=== PATIENT | male | born 1970 | race Caucasian/White ===

== ENCOUNTER 2022-02-01 10:38 | Emergency (ER) | payer BC, SELFPAY ==
[2022-02-01 10:47] VITALS: BP 167/93; RESP 22; TEMP 36.7; O2SAT 97; BMI 44.0
--- NOTE | 2022-02-01 12:42 | ED.BACK ---
HPI - Back Pain/Injury General Time Seen by Provider: 12:42 <Lilliam Etienne MD - Last Filed: 03/18/22 13:20> Date Seen: 02/01/22 <Lilliam Etienne MD - Last Filed: 03/18/22 13:20> Chief Complaint: Back Injury/Pain <Lilliam Etienne MD - Last Filed: 03/18/22 13:20> Stated Complaint: Low back pain <Lilliam Etienne MD - Last Filed: 03/18/22 13:20> Time Seen by Provider: 02/01/22 12:42 <Lilliam Etienne MD - Last Filed: 03/18/22 13:20> Source: patient and RN notes reviewed <Lanny Price MD - Last Filed: 02/01/22 13:29> Mode of arrival: ambulatory <Lanny Price MD - Last Filed: 02/01/22 13:29> Limitations: no limitations <Lanny Price MD - Last Filed: 02/01/22 13:29> History of Present Illness HPI Narrative: Patient is a 51-year-old male coming in with low back pain that radiates through his buttock into the leg. This just started insidiously over the last couple days. Yesterday he tried getting and warm tub, describes it as he fought his way into the tub. He has been trying heating pad. He has been trying laying on the floor with his legs elevated. He has done Tylenol, ibuprofen, aspirin type back medication as well as Aleve. Yesterday the front of his right thigh felt numb but that is no longer there. The pain radiates down to the leg, down past the knee at times. He notes if he tries to turn at the torso, he gets a sharp shooting pain. He states when he goes to turn he has to move with his feet instead of leading with his torso as you normally would reflexively do. He has had no fevers or chills, is a nonsmoker, there is no trauma. He historically has gotten some back spasms in his back in the past but would just lay on the floor with his legs elevated and that would resolve it. He has never had to have any imaging of his back in the past due to any pain. Sleeping was difficult, had difficulty getting into bed. He states he finally got into bed and just tried some meditation, self relaxation and was able to fall asleep. Denies any bowel or bladder issues, no motor issues. <Lanny Price MD - Last Filed: 02/01/22 13:29> MD elicited complaint: back pain <Lanny Price MD - Last Filed: 02/01/22 13:29> Related Data Home Medications: Home Medications Medication Instructions Recorded Confirmed losartan 100 1 tab PO DAILY 02/01/22 02/01/22 mg-hydrochlorothiazide 25 mg tablet <Lilliam Etienne MD - Last Filed: 03/18/22 13:20> Allergies/Adverse Reactions: Allergies Allergy/AdvReac Type Severity Reaction Status Date / Time No Known Drug Allergies Allergy Verified 02/01/22 10:50 <Lilliam Etienne MD - Last Filed: 03/18/22 13:20> Review of Systems Status of ROS: Reports: 6 or more systems reviewed and unremarkable except as noted in History and below <Lanny Price MD - Last Filed: 02/01/22 13:29> Exam Const: Vital Signs, click to edit/add: Vital Signs - 24 hr 02/01/22 10:47 Temperature 98.1 F Respiratory Rate 22 Blood Pressure [Ri ght Upper Arm] 167/93 H Pulse Oximetry 97 Oxygen Delivery Me thod Room Air <Lilliam Etienne MD - Last Filed: 03/18/22 13:20> Vital Signs, click to edit/add: Vital Signs - 24 hr 02/01/22 10:47 Temperature 98.1 F Respiratory Rate 22 Blood Pressure [Ri ght Upper Arm] 167/93 H Pulse Oximetry 97 Oxygen Delivery Me thod Room Air <Lanny Price MD - Last Filed: 02/01/22 13:29> Documenting provider has reviewed patient's vital signs: yes <Lanny Price MD - Last Filed: 02/01/22 13:29> Common normals: no apparent distress, oriented x3, no limitations, healthy appearing and alert <Lanny Price MD - Last Filed: 02/01/22 13:29> General appearance: cooperative, comfortable (Sitting in the chair in exam room 4), well kempt and well developed <Lanny Price MD - Last Filed: 02/01/22 13:29> Nutritional appearance: obese <Lanny Price MD - Last Filed: 02/01/22 13:29> HENMT: Common normals: normocephalic and head/scalp atraumatic <Lanny Price MD - Last Filed: 02/01/22 13:29> Head and scalp: normocephalic and atraumatic <Lanny Price MD - Last Filed: 02/01/22 13:29> Back & Pelvis: Common normals: thoracic and lumbar spine normal to inspection and no thoracic nor lumbar tenderness <MD Cande Verdugo Last Filed: 02/01/22 13:29> Other: Complains of pain in the right buttock muscle, no visible skin changes. Has a definite straight leg raise on the right, some contralateral on the left but less so than the right. <Lanny Price MD - Last Filed: 02/01/22 13:29> Neuro: Common normals: oriented x3 <Lanny Price MD - Last Filed: 02/01/22 13:29> Sensorium/orientation: alert <Lanny Price MD - Last Filed: 02/01/22 13:29> Other: No DTRs on either side could be elicited. Strength is 5/5 and symmetric in both sides. Normal light touch sensation throughout. No lower extremity edema noted on either side. Has definite straight leg raising. Did ambulate into the ED without difficulty. <Lanny Price MD - Last Filed: 02/01/22 13:29> Psych: Appearance: well kempt <MD Cande Verdugo Last Filed: 02/01/22 13:29> Skin: Common normals: no rashes or lesions noted (On visualized skin) <Lanny Price MD - Last Filed: 02/01/22 13:29> General skin exam: no rashes or lesions noted (On visualized skin) <Lanny Price MD - Last Filed: 02/01/22 13:29> Course Course Hospital Course: Reviewed with patient the warning signs for back issues, he is not exhibiting any. Discussed when consideration for neuro imaging would be necessary. At this time I believe he can proceed with conservative management and outpatient follow-up. If the treatment we are all lining with medication is not working, can follow up with his primary care provider and consider physical therapy and or MRI if his back has ongoing symptoms. Did review that clinically I would suspect he has radiculopathy of a left nerve root. Scripts her medicines provided from [facility]. Smallest dose available of the oxycodone was 10 tablets of the 5 mg pack. Prednisone 20 b.i.d. x5 days provided. Flexeril 10 mg t.i.d. p.r.n., 15 provided. <Lilliam Etienne MD - Last Filed: 03/18/22 13:20> Vital Signs Vital signs: Initial Vital Signs Temperature 98.1 F 02/01/22 10:47 Temperature Source Temporal Artery Scan 02/01/22 10:47 Respiratory Rate 22 02/01/22 10:47 Blood Pressure 167/93 H 02/01/22 10:47 Blood Pressure Mean 117 02/01/22 10:47 Blood Pressure Position Sitting 02/01/22 10:47 Pulse Oximetry 97 02/01/22 10:47 Oxygen Delivery Method 02/01/22 10:47 Vital Signs Temperature 98.1 F 02/01/22 10:47 Respiratory Rate 22 02/01/22 10:47 Blood Pressure 167/93 H 02/01/22 10:47 Pulse Oximetry 97 02/01/22 10:47 Oxygen Delivery Method 02/01/22 10:47 Temperature 98.1 F 02/01/22 10:47 Respiratory Rate 22 02/01/22 10:47 Blood Pressure 167/93 H 02/01/22 10:47 Pulse Oximetry 97 02/01/22 10:47 Oxygen Delivery Method 02/01/22 10:47 <Lilliam Etienne MD - Last Filed: 03/18/22 13:20> Initial Vital Signs Temperature 98.1 F 02/01/22 10:47 Temperature Source Temporal Artery Scan 02/01/22 10:47 Respiratory Rate 22 02/01/22 10:47 Blood Pressure 167/93 H 02/01/22 10:47 Blood Pressure Mean 117 02/01/22 10:47 Blood Pressure Position Sitting 02/01/22 10:47 Pulse Oximetry 97 02/01/22 10:47 Oxygen Delivery Method 02/01/22 10:47 Vital Signs Temperature 98.1 F 02/01/22 10:47 Respiratory Rate 22 02/01/22 10:47 Blood Pressure 167/93 H 02/01/22 10:47 Pulse Oximetry 97 02/01/22 10:47 Oxygen Delivery Method 02/01/22 10:47 Temperature 98.1 F 02/01/22 10:47 Respiratory Rate 22 02/01/22 10:47 Blood Pressure 167/93 H 02/01/22 10:47 Pulse Oximetry 97 02/01/22 10:47 Oxygen Delivery Method 02/01/22 10:47 <Lanny Price MD - Last Filed: 02/01/22 13:29> Critical Care Time Critical Care Time Critical Care Time: No <Lanny Price MD - Last Filed: 02/01/22 13:29> Discharge Plan Discharge Clinical Impression: Lumbar radiculopathy <Lilliam Etienne MD - Last Filed: 03/18/22 13:20> Condition: Stable <Lilliam Etienne MD - Last Filed: 03/18/22 13:20> Instructions: Lumbar Radiculopathy (ED) <Lilliam Etienne MD - Last Filed: 03/18/22 13:20> Additional Instructions: Start prednisone and take as prescribed. Take the prednisone with food to protect your stomach. Have written for Flexeril which is a muscle relaxant, can be sedating. Take as prescribed. Use Tylenol 1000 mg 3 times a day baseline for pain control. Can supplement with either ibuprofen or naproxen but not both, following bottle directions for dosing, can be used with the Tylenol. If pain is severe or if needed at bedtime, small prescription of oxycodone is provided. Follow restrictions as outlined on the oxycodone handout, if it makes you constipated may need to use senna and or MiraLax to circumvent this. Follow-up with your primary care provider within the next week. May need to consider physical therapy, referral can be provided from them. If there are worrisome features, as outlined in the handout, need to be re-evaluated. <Lilliam Etienne MD - Last Filed: 03/18/22 13:20> Activity Level: Activity as Tolerated <Lilliam Etienne MD - Last Filed: 03/18/22 13:20> Activity as Tolerated <Lanny Price MD - Last Filed: 02/01/22 13:29> Prescriptions: No Action losartan-hydrochlorothiazide 100-25 mg tablet 1 tab PO DAILY Label Comments: TAKE 1 TABLET BY MOUTH EVERY DAY <Lilliam Etienne MD - Last Filed: 03/18/22 13:20> Stand Alone Forms: [facility] Info Instructions <Lilliam Etienne MD - Last Filed: 03/18/22 13:20>
== END 2022-02-01 15:09 | disposition home or self-care (01) ==
PROVIDERS: Emergency Provider Family Medicine
DX: M54.16 Radiculopathy, lumbar region (principal)
CPT/HCPCS: 99283; 99284

== ENCOUNTER 2022-08-17 08:15 | Outpatient (CLI) | payer BC, SELFPAY ==
--- NOTE | 2022-08-17 08:48 | W.ANESCHARGE ---
Anesthesia Charges Start Date/Time Anesthesia Start Date: 08/17/22 Anesthesia Start Time: 09:05 Stop Date/Time Anesthesia Stop Date: 08/17/22 Anesthesia Stop Time: 09:40
--- NOTE | 2022-08-17 09:40 | W.ANESCHARGE ---
Anesthesia Charges Start Date/Time Anesthesia Start Date: 08/17/22 Anesthesia Start Time: 09:05 Stop Date/Time Anesthesia Stop Date: 08/17/22 Anesthesia Stop Time: 09:40
== END 2022-08-17 08:16 | disposition home or self-care (01) ==
LOC: OP CLINIC 08:15
PROVIDERS: PCP Family Medicine; Visit Provider Internal Medicine Gastroenterology
DX: Z12.11 Encounter for screening for malignant neoplasm of colon (principal); K63.5 Polyp of colon; K57.30 Diverticulosis of large intestine without perforation or abscess without bleeding
CPT/HCPCS: 45378; 45385; 811; 88305; 99153; J2704